=== PATIENT | male | born 1975 | race Caucasian/White ===

== ENCOUNTER 2021-05-06 07:00 | Emergency (ER) | payer SELFPAY ==
[2021-05-06] MEDS ORDERED: MORPHINE 10 MG/ML VIAL IVP STA (07:30)
[2021-05-06] MEDS ORDERED: LIDOCAINE-MPF 2% 6 ML in SODIUM CHLORIDE 0.9% 50 ML IV STA (07:30)
--- NOTE | 2021-05-06 07:33 | ED Physician Documentation ---
PD HPI ABD PAIN - Stated complaint Stated Complaint: BACK PX - Chief complaint Chief Complaint: Abd Pain - History obtained from History obtained from: Patient - History of Present Illness Timing - onset: Last night Timing - duration: Days (1) Timing - details: Abrupt onset Pain level max: 10 Pain level now: 10 Quality: Aching, Pain Location: Other (L flank, LLQ) Radiation: Other (LLQ) Improved by: Other (nothing) Worsened by: Moving Associated symptoms: No: Fever, Nausea, Vomiting, Hematemesis, Diarrhea, Constipation, Melena, Hematochezia, Dysuria, Hematuria, Chest pain, Dizzy, Near syncope / syncope, Loss of appetite, Weight loss, Testicular pain Similar symptoms before: Has not had sx before Recently seen: Not recently seen - Additional information Additional information: 45-year-old male [place] he developed left flank pain. States was near syncopal on the toilet after that. No diarrhea or constipation. Took NyQuil without relief. Worse with movement. Nothing makes it better. No history of similar Review of Systems Ten Systems: 10 systems reviewed and negative Constitutional: denies: Fever, Chills Respiratory: denies: Cough Skin: denies: Rash Musculoskeletal: denies: Neck pain Neurologic: denies: Focal weakness, Numbness PD PAST MEDICAL HISTORY - Past Medical History Past Medical History: No - Past Surgical History Past Surgical History: No - Present Medications Home Medications: Ambulatory Orders Medication Instructions Recorded Confirmed No Known Home Medications 05/06/21 05/06/21 - Allergies Allergies/Adverse Reactions: Allergies Allergy/AdvReac Type Severity Reaction Status Date / Time No Known Drug Allergies Allergy Verified 05/06/21 07:12 - Living Situation Living Arrangement: reports: At home - Family History Family history: reports: Non contributory - Immunizations Immunizations are current?: Yes PD ED PE NORMAL - Vitals Vital signs reviewed: Yes - General General: Alert and oriented X 3, Well developed/nourished, Other (appears in pain) - HEENT HEENT: PERRL, Moist mucous membranes - Neck Neck: Supple, no meningeal sign - Cardiac Cardiac: RRR, Strong equal pulses - Respiratory Respiratory: No respiratory distress, Clear bilaterally - Abdomen Abdomen: Soft, Non distended, Other (Tender to palpation left flank and left lower quadrant. No peritoneal signs) - Male Male : Other (Patient has a swollen and very tender left hemiscrotum, erythematous. No crepitus.) - Derm Derm: Warm and dry - Extremities Extremities: No edema, No calf tenderness / cord - Neuro Neuro: Alert and oriented X 3 - Psych Psych: Normal mood, Normal affect Results - Vitals Vitals: Vital Signs - 24 hr 05/06/21 05/06/21 05/06/21 07:08 07:38 09:23 Temperature 36.5 C Heart Rate 76 77 80 Respiratory 16 16 16 Rate Blood Pressure 106/59 L 140/82 H 140/95 H O2 Saturation 99 94 96 05/06/21 05/06/21 11:09 11:15 Temperature Heart Rate 94 87 Respiratory 18 16 Rate Blood Pressure 148/93 H O2 Saturation 97 96 Oxygen O2 Source Room air - Labs Labs: Laboratory Tests 05/06/21 05/06/21 05/06/21 07:30 07:30 11:14 WBC 17.8 H RBC 4.38 L Hgb 12.7 L Hct 37.4 L MCV 85.4 MCH 29.0 MCHC 34.0 RDW 13.2 Plt Count 271 MPV 11.3 Neut # (Auto) 15.5 H Lymph # (Auto) 0.5 L [place] # (Auto) 1.5 H Eos # (Auto) 0.2 Baso # (Auto) 0.1 Absolute Nucleated RBC 0.00 Band Neuts % (Manual) Not Reportable Abnorm Lymph % (Manual) Not Reportable Nucleated RBC % 0.0 Neutrophils # (Manual) Not Reportable Lymphocytes # (Manual) Not Reportable Monocytes # (Manual) Not Reportable Eosinophils # (Manual) Not Reportable Basophils # (Manual) Not Reportable Differential Comment Y WBC Morphology NORMAL APPEARANCE Platelet Estimate NORMAL (130-450,000) Platelet Morphology NORMAL APPEARANCE RBC Morph Micro Appear NORMAL APPEARANCE Sodium 136 Potassium 3.1 L Chloride 102 Carbon Dioxide 22 Anion Gap 12.0 BUN 16 Creatinine 1.0 Estimated GFR (MDRD) 81 L Glucose 165 H Calcium 9.1 Total Bilirubin 1.8 H AST 28 ALT 25 Alkaline Phosphatase 68 Total Protein 7.2 Albumin 4.0 Globulin 3.2 Albumin/Globulin Ratio 1.3 Lipase 25 Nasal Adenovirus (PCR) NOT DETECTED Nasal B. parapertussis DNA (PCR) NOT DETECTED Nasal Coronavir 229E PCR NOT DETECTED Nasal Coronavir HKU1 PCR NOT DETECTED Nasal Coronavir NL63 PCR NOT DETECTED Nasal Coronavir OC43 PCR NOT DETECTED Nasal Enterovir/Rhinovir PCR NOT DETECTED Nasal Influenza B PCR NOT DETECTED Nasal Influenza A PCR NOT DETECTED Nasal Parainfluen 1 PCR NOT DETECTED Nasal Parainfluen 2 PCR NOT DETECTED Nasal Parainfluen 3 PCR NOT DETECTED Nasal Parainfluen 4 PCR NOT DETECTED Nasal RSV (PCR) NOT DETECTED Nasal B.pertussis DNA PCR NOT DETECTED Nasal C.pneumoniae (PCR) NOT DETECTED Mike Human Metapneumo PCR NOT DETECTED Nasal M.pneumoniae (PCR) NOT DETECTED Nasal SARS-CoV-2 (PCR) NOT DETECTED - Rads (name of study) CT abd/pelvis Radiology: Prelim report reviewed, EMP read contemporaneously, See rad report (Negative for diverticulitis. This patient has bilateral fat-containing inguinal hernias. There is fatty stranding seen within the left inguinal hernia, which may be the cause of the patient's left lower quadrant pain. ) scrotal US Radiology: Prelim report reviewed, EMP read contemporaneously, See rad report (The low level internal echoes and septations at the left-sided hydrocele may represent a manifestation of internal old infection within this space also. This may in fact represent a pyocele. ) PD MEDICAL DECISION MAKING - ED course Complexity details: reviewed results, re-evaluated patient, considered differential, d/w patient, d/w [employer] consultant ED course: 45-year-old male with a left-sided scrotal pyocele. No crepitus. There are no beds available at [facility]. Therefore [facility] was contacted. Dr. Brock, urology accepts in transfer. Patient was started on Rocephin and doxycycline. Pain controlled. Patient will be transferred to the [facility] emergency department for further care. COBRA forms completed. This document was made in part using voice recognition software. While efforts are made to proofread this document, sound alike and grammatical errors may occur. Departure - Departure Disposition: 02 Transfer Acute Care Hosp Clinical Impression: Pyocele Condition: Stable
[2021-05-06 07:45] LABS: BASOPHILS # (AUTO) 0.1 10^3/uL (0.0-0.1); BASOPHILS % (AUTO) 0.3 %; EOSINOPHILS # (AUTO) 0.2 10^3/uL (0.0-0.7); HCT - HEMATOCRIT 37.4 % (42.0-52.0); HGB - HEMOGLOBIN 12.7 g/dL (14.0-18.0); LYMPHOCYTES # (AUTO) 0.5 10^3/uL (1.5-3.5); LYMPHOCYTES % (AUTO) 2.9 %; MEAN CORPUSCULAR VOLUME 85.4 fL (80.0-94.0); MEAN PLATELET VOLUME 11.3 fL (7.4-11.4); MONOCYTES # (AUTO) 1.5 10^3/uL (0.0-1.0); MONOCYTES % (AUTO) 8.3 %; NEUTROPHILS # (AUTO) 15.5 10^3/uL (1.5-6.6); NEUTROPHILS % (AUTO) 86.9 %; PLT - PLATELET COUNT 271 10^3/uL (130-450); RED BLOOD COUNT 4.38 10^6/uL (4.70-6.10); RED CELL DISTRIBUTION WIDTH 13.2 % (12.0-15.0); WHITE BLOOD COUNT 17.8 x10^3/uL (4.8-10.8)
[2021-05-06] MEDS ORDERED: IOVERSOL 320 100 ML VIAL IVP ONE ×2 (07:45→08:00)
[2021-05-06 07:48] LABS: ALBUMIN/GLOBULIN RATIO 1.3 (1.0-2.2); BILIRUBIN,TOTAL 1.8 mg/dL (0.2-1.0); CALCIUM 9.1 mg/dL (8.5-10.3); POTASSIUM 3.1 mmol/L (3.5-5.0); TOTAL PROTEIN 7.2 g/dL (6.7-8.2)
[2021-05-06 08:10] LABS: DIFFERENTIAL COMMENT Y; PLATELET ESTIMATE, MANUAL NORMAL (130-450,000) (NORMAL); PLATELET MORPHOLOGY NORMAL APPEARANCE (NORMAL); RBC MORPHOLOGY (MULTIPLE) NORMAL APPEARANCE (NORMAL); WBC MORPHOLOGY (MULTIPLE) NORMAL APPEARANCE (NORMAL)
--- NOTE | 2021-05-06 08:24 | CT Report ---
PROCEDURE: Abdomen/Pelvis W INDICATIONS: LLQ, L flank pain, possible diverticulitis vs ston CONTRAST: IV CONTRAST: Optiray 320 ml: 100 PO CONTRAST: *NO PO CONTRAST TECHNIQUE: After the administration of IV contrast, 5 mm thick sections acquired from the diaphragms to the symp hysis. 5 mm thick coronal and sagittal reformats were acquired. For radiation dose reduction, the f ollowing was used: automated exposure control, adjustment of mA and/or kV according to patient size. COMPARISON: None. FINDINGS: Image quality: Excellent. ABDOMEN: Lung bases: Lung bases are clear. Heart size is normal. Solid organs: Liver and spleen are normal in size and enhancement. Gallbladder wall does not appear thickened. Biliary system is non dilated. Pancreas enhances normally. No adrenal nodules. Kidn eys demonstrate normal size and enhancement, without hydronephrosis. Peritoneum and bowel: In this patient with this given history, scrutiny is given to the sigmoid colo n and the left lower quadrant. No significant abnormalities can be seen. Bowel loops demonstrate norm al wall thickness and caliber. No free fluid or air. A normal appendix is incidentally noted. Nodes and vessels: No retroperitoneal or mesenteric adenopathy by size criteria. Aorta and inferior vena cava are normal in size. Atherosclerotic calcification is seen. Miscellaneous: A mild fat-containing periumbilical hernia is seen. PELVIS: Genitourinary: Bladder wall thickness is normal. Miscellaneous: No inguinal adenopathy. Bilateral fat-containing inguinal hernias are seen. There is fatty stranding seen within the left inguinal hernia. Bones: No suspicious bony lesions. No vertebral body compression fractures. Premature bony degener ative changes are seen, with numerous levels of bridging anterior osteophytes within the thoracic spi ne. IMPRESSION: Negative for diverticulitis. This patient has bilateral fat-containing inguinal hernias. There is fatty stranding seen within the left inguinal hernia, which may be the cause of the patient's left lower quadrant pain. Incidental note is made of: Fat-containing periumbilical hernia Normal appendix Premature bony degenerative change Reviewed by: Hugh Burleson MD on 05/06/2021 7:22 AM NOAH Approved by: Hugh Burleson MD on 05/06/2021 7:22 AM [facility]OL[facility] LIDIA Station ID: [id number]
[2021-05-06] MEDS: HYDROmorphone 1 MG/ML CARPUJECT IVP STA ×2 (09:34→13:48)
[2021-05-06] MEDS ORDERED: cefTRIAXone 1 GM VIAL IVP STA (10:20)
[2021-05-06] MEDS ORDERED: DOXYCYCLINE INJ 100 MG in SODIUM CHLORIDE 0.9% MINIBAG 100 ML IV STA (10:20)
--- NOTE | 2021-05-06 10:43 | Ultrasound Report ---
PROCEDURE: Testicle w/Doppler INDICATIONS: L testicular pain TECHNIQUE: Real-time scanning was performed of the scrotum and testicles, with image documentation. Color and p ulse Doppler interrogation was performed of both testicles. COMPARISON: None CT abdomen/pelvis same day.. FINDINGS: Right: Testicle is normal in size at 3.0 x 3.2 x 5.0- cm, and homogenous in echotexture. Epididymis is normal in overall size and morphology. No hydrocele or varicoceles. Overlying scrotal skin is n ormal in thickness. Left: Testicle is normal in size at 3.2 x 3.7 x 4.9 cm, and homogeneous in echotexture. Epididymis is enlarged in overall size at 0.9 x 0.8 x 6.8 centimeters and normal in morphology. There is a thick -walled hydrocele on the left, and also a varicocele without visualized internal thrombosis. The hydr ocele demonstrates internal debris and septations. Overlying scrotal skin is asymmetric in thickness . Doppler: Color and pulse Doppler demonstrate normal and symmetric arterial flow in the right testis but there is mild increased vascularity involving the left testis and epididymis.. IMPRESSION: Normal right testicle and epididymis. The left testicle demonstrates a slight increased vascularity a nd this pattern is more evident at the epididymis. Epididymal orchitis on the left appears present. T here is a mildly complex hydrocele at the left hemiscrotum, with mild internal debris and septations. No suspicion for testicular neoplasm. Reviewed by: Miguel Angel Trevizo MD on 05/06/2021 10:41 AM PDT Approved by: Miguel Angel Trevizo MD on 05/06/2021 10:41 AM PDT Station ID: [id number]
[2021-05-06 12:12] LABS: B. PARAPERTUSSIS- RESP PCR PAN NOT DETECTED; B. PERTUSSIS- RESP PCR PANEL NOT DETECTED; C. PNEUMONIAE- RESP PCR PANEL NOT DETECTED; CORONAVIRUS 229E-RESP PCR NOT DETECTED; CORONAVIRUS HKU1-RESP PCR NOT DETECTED; CORONAVIRUS NL63-RESP PCR NOT DETECTED; CORONAVIRUS OC43-RESP PCR NOT DETECTED; HUMAN METAPNEUMOVIRUS NOT DETECTED; INFLUENZA A- RESP PCR PANEL NOT DETECTED; INFLUENZA B - RESP PCR PANEL NOT DETECTED; M. PNEUMONIAE- RESP PCR PANEL NOT DETECTED; PARAINFLUENZA VIRUS 1 NOT DETECTED; PARAINFLUENZA VIRUS 2 NOT DETECTED; PARAINFLUENZA VIRUS 3 NOT DETECTED; PARAINFLUENZA VIRUS 4 NOT DETECTED; RHINOVIRUS/ENTEROVIRUS NOT DETECTED; RSV- RESP PCR PANEL NOT DETECTED; SARS-CoV-2 -RESP PCR PANEL NOT DETECTED
[2021-05-06] MEDS ORDERED: SODIUM CHLORIDE 0.9% 1,000 ML IV STA (12:23)
[2021-05-06] MEDS ORDERED: HYDROmorphone 1 MG/ML CARPUJECT IVP STA (13:21)
[2021-05-06 13:56] VITALS: BP 145/86
[2021-05-06 13:56] LABS: BILIRUBIN,URINE NEGATIVE (NEGATIVE); GLUCOSE, URINE (UA) NEGATIVE (NEGATIVE); KETONES,URINE (UA) NEGATIVE (NEGATIVE); LEUKOCYTE ESTERASE, URINE NEGATIVE (NEGATIVE); NITRITE,URINE NEGATIVE (NEGATIVE); OCCULT BLOOD,URINE NEGATIVE (NEGATIVE); PROTEIN,URINE TRACE mg/dL (NEGATIVE); UROBILINOGEN,URINE 2 E.U./dL (NORMAL)
[2021-05-06 13:58] LABS: CLARITY,URINE CLEAR (CLEAR)
== END 2021-05-06 14:27 | disposition short-term general hospital (02) ==
LOC: ED 07:00
DX: N49.2 Inflammatory disorders of scrotum (principal); N43.3 Hydrocele, unspecified; K40.20 Bilateral inguinal hernia, without obstruction or gangrene, not specified as recurrent; K42.9 Umbilical hernia without obstruction or gangrene; Z20.822 Contact with and (suspected) exposure to COVID-19
CPT/HCPCS: 0202U; 36415; 74177; 76870; 80053; 81003; 83690; 85025; 93975; 96365; 96375; 99284; 99285; J1170; J7040; Q9967; 81001; 87086